=== PATIENT | male | born 1980 | race Caucasian/White ===

== ENCOUNTER 2017-06-13 15:04 | Emergency (ER) | payer OTHER ==
[~2017-06-13] VITALS: Ht 188 cm; Wt 95.3 kg
[2017-06-13] MEDS ORDERED: ORPHENADRINE 60 MG/2 ML (NORFLEX) AMP IM STA (16:15)
[2017-06-13] MEDS ORDERED: diphenhydrAMINE 50 MG/ML INJ (BENADRYL) IM ONE (16:15)
[2017-06-13] MEDS ORDERED: KETOROLAC 60 MG/2 ML VIAL IM STA (16:15)
--- NOTE | 2017-06-13 17:16 | Diagnostic Imaging Report ---
PROCEDURE: CT lumbar spine without contrast. TECHNIQUE: Multiple contiguous axial images were obtained through the lumbar spine without the use of intravenous contrast. Sagittal and coronal reformations were then performed. INDICATION: Back pain. COMPARISON: None. FINDINGS: For the purposes of this exam, last well-formed disc space is denoted the L5-S1 level. Evaluation of static alignment demonstrates mild straightening of normal lordotic curvature of the lumbar spine. There is no significant asael or retrolisthesis. There is no evidence of jumped facets. Vertebral body heights are maintained. There is no evidence of acute fracture. No bony fragments are seen within the spinal canal. There is intervertebral disc height loss, greatest at the L5-S1 level. There is also associated anterior and posterior disc bulge and perhaps early sclerotic change to the S1 superior endplate. Pre and paravertebral soft tissue structures are unremarkable. Evaluation of the spinal canal is suboptimal given CT modality and lack of intrathecal contrast. There is broad-based posterior disc bulge with bilateral facet arthropathy at the L4-L5 level. This does appear to result in moderate spinal canal narrowing. There is also mild narrowing of the bilateral neural foramina. L5-S1: There is broad-based posterior disc bulge and bilateral facet arthropathy. There may be minimal spinal canal narrowing. There is also moderate narrowing of the bilateral neural foramina. IMPRESSION: 1. No CT evidence of acute fracture or dislocation in the lumbar spine. 2. Multilevel degenerative changes, which appear greatest at the L4-L5 and L5-S1 levels. If there is concern for underlying discogenic disease, MRI is recommended. Dictated by: Dictated on workstation # [id number]
--- NOTE | 2017-06-13 17:30 | ED Back Pain ---
General Chief Complaint: Back Problems Stated Complaint: BACK PAIN Nursing Triage Note: Pt c/o lower back pain. Pt reports he was lifting a generator at work on Sunday (06/11) which aggrevated back pain. Pt has hx back pain. 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 HAS NOT SOUGHT CARE FOR THIS PROBLEM UNTIL TODAY HAS NOT TAKEN ANYTHING FOR PAIN SYMPTOMS NO DIFFERENT TODAY Other Comments PCP: NONE Allergies and Home Medications Allergies Coded Allergies: No Known Drug Allergies (Unverified , 06/13/17) Home Medications Methocarbamol 500 Mg Tablet, 500 MG PO QID, #20 Prescribed by: MICHAEL LYNNE on 06/13/17 1732 Methylprednisolone 4 Mg Tab.ds.pk, 4 MG PO UD, #1 Prescribed by: MICHAEL LYNNE on 06/13/17 1732 Tramadol HCl 50 Mg Tablet, 50 MG PO Q4H, #20 Prescribed by: MICHAEL LYNNE on 06/13/17 1732 Constitutional: no symptoms reported Respiratory: no symptoms reported Cardiovascular: no symptoms reported Gastrointestinal: no symptoms reported Genitourinary: no symptoms reported Musculoskeletal: see HPI Skin: no symptoms reported Psychiatric/Neurological: No Symptoms Reported Past Fissdpb-[id number]-Gvwbhu Hx Patient Social History Alcohol Use: Occasionally Uses Recreational Drug Use: No Smoking Status: Current Everyday Smoker Type Used: Cigarettes Recent Foreign Travel: No Contact w/Someone Who Travel: No Recent Infectious Disease Expo: No Recent Hopitalizations: No Seasonal Allergies Seasonal Allergies: No Surgeries History of Surgeries: Yes Surgeries: Abdominal Respiratory History of Respiratory Disorde: No Cardiovascular History of Cardiac Disorders: No Neurological History of Neurological Disord: No Genitourinary History of Genitourinary Disor: No Gastrointestinal History of Gastrointestinal Di: No Musculoskeletal History of Musculoskeletal Dis: No Endocrine History of Endocrine Disorders: No HEENT History of HEENT Disorders: No Cancer History of Cancer: No Psychosocial History of Psychiatric Problem: No Integumentary History of Skin or Integumenta: No Blood Transfusions History of Blood Disorders: No Physical Exam Vital Signs Vital Signs - First Documented 06/13/17 15:40 Temp 98.1 Pulse 101 Resp 18 B/P (MAP) 130/101 (111) Pulse Ox 98 O2 Delivery Room Air Capillary Refill : Less Than 3 Seconds General Appearance: WD/WN, Other (WALKS SLOWLY AND BENT AT WAIST, STANDS UP- LEANING OVER CHAIR. 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 Skin: Normal Color, Warm/Dry Progress/Results/Core Measures Results/Orders My Orders Orders - MICHAEL LYNNE DO Ct Lumbar Spine Wo (06/13/17 16:15) Ketorolac Injection (Toradol Injection) (06/13/17 16:15) Orphenadrine Injection (Norflex Injectio (06/13/17 16:15) Diphenhydramine Injection (Benadryl Inje (06/13/17 16:15) Fentanyl Injection (Sublimaze Injection (06/13/17 17:32) Fentanyl Injection (Sublimaze Injection (06/13/17 17:38) Medications Given in ED Current Medications Medications Dose Ordered Sig/Shruthi Route Start Time Stop Time Status Last Admin Dose Admin Diphenhydramine HCl 50 mg ONCE ONCE IM 06/13/17 16:15 06/13/17 16:17 DC 06/13/17 16:40 50 MG Vital Signs/I&O Vital Sign - Last 12Hours 06/13/17 06/13/17 15:40 17:47 Temp 98.1 Pulse 101 94 Resp 18 18 B/P (MAP) 130/101 (111) 137/108 Pulse Ox 98 98 O2 Delivery Room Air Blood Pressure Mean: 111 Progress Note : Progress Note PAIN IMPROVED WITH NORFLEX, TORADOL, BENADRYL, THEN WHEN IN CT WITH LAYING FLAT HAD RETURN OF SPASMS AND WAS UNABLE TO SIT UP, OR STAND UP STRAIGHT GIVEN FENTANYL AND PAIN IMPROVED AT DISMISSAL Diagnostic Imaging Comments CT LUMBAR SPINE--NO ACUTE PROCESS, DEGENERATIVE DISC DISEASE, WITH DISC BULGING , MOST AT L4-L5 AND L5-S1. PER RADIOLOGIST REPORT @ 1723 Reviewed: Reviewed by Me Departure Impression Impression: Primary Impression: Low back strain Additional Impression: Degenerative disc disease, lumbar Disposition: HOME, SELF-CARE Condition: Stable Departure-Patient Inst. Referrals: NO,LOCAL PHYSICIAN (PCP) Primary Care Physician Patient Instructions: Degenerative Disc Disease (DC), Lumbar Muscle Strain (DC) Add. Discharge Instructions: MOIST HEAT TO AREA AT 20 MINUTE INTERVALS NO TWISTING OR BENDING AT WAIST, NO LIFTING OVER 5 LBS--UNTIL RELEASED BY FOLLOW UP WITH OCCUP[facility]ALTH TOMORROW FOR FURTHER CARE All discharge instructions reviewed with patient and/or family. Voiced understanding. Scripts Tramadol HCl (Ultram) 50 Mg Tablet 50 MG PO Q4H, #20 TAB Prov: MICHAEL LYNNE DO 06/13/17 Methocarbamol (Robaxin) 500 Mg Tablet 500 MG PO QID for Muscle Spasms, #20 TAB Prov: MICHAEL LYNNE DO 06/13/17 Methylprednisolone (Medrol) 4 Mg Tab.ds.pk 4 MG PO UD, #1 PKG Prov: MICHAEL LYNNE DO 06/13/17 MICHAEL LYNNE DO Jun 13, 2017 17:30
[2017-06-13] MEDS ORDERED: METH4TAB PO (17:32)
[2017-06-13] MEDS ORDERED: fentaNYL INJECTION 100 MCG/2 ML AMP IVP STA (17:32)
[2017-06-13] MEDS ORDERED: METH500T PO (17:32)
[2017-06-13] MEDS ORDERED: TRAM-42 PO (17:32)
[2017-06-13] MEDS ORDERED: fentaNYL INJECTION 100 MCG/2 ML AMP IM STA (17:38)
[2017-06-13 17:47] VITALS: BP 137/108
== END 2017-06-13 17:45 | disposition home or self-care (01) ==
LOC: ER 15:07
DX: S39.012A Strain of muscle, fascia and tendon of lower back, initial encounter (principal); M51.36 Other intervertebral disc degeneration, lumbar region; F17.210 Nicotine dependence, cigarettes, uncomplicated; Z79.52 Long term (current) use of systemic steroids; Z98.890 Other specified postprocedural states; X50.0XXA Overexertion from strenuous movement or load, initial encounter; Y92.59 Other trade areas as the place of occurrence of the external cause
CPT/HCPCS: 72131; 96372; 99284